=== PATIENT | female | born 1930 | race Caucasian/White ===

== ENCOUNTER 2017-03-13 13:23 | Inpatient (IN) | payer MEDICARE ==
[~2017-03-13] VITALS: Ht 165.1 cm; Wt 70.4 kg
[2017-03-13 14:22] LABS: BASOPHILS 0.2 % (0-2); EOSINOPHILS 0.5 % (0-7); HEMATOCRIT 39.2 % (36.0-48.0); HEMOGLOBIN 14.3 g/dL (12-16); IMMATURE GRANULOCYTES 0.3 % (0-5); LYMPHOCYTES 14.5 % (15-50); MCH 33.1 pg (26.0-34.0); MCHC 36.5 g/dL (31.0-37.0); MCV 90.7 fL (80.0-100.0); MONOCYTES 9.5 % (2-11); PLATELET COUNT 204 10x3/uL (130-400); RBC 4.32 10x6/uL (4.00-5.40); RDW 12.1 % (11.5-14.5); WBC 6.6 10x3/uL (4.8-10.8)
[2017-03-13 14:32] LABS: INR 2.13 (0.85-1.17); PROTIME 23.3 SECONDS (11.6-15.0)
[2017-03-13 14:33] LABS: APTT 36.8 SECONDS (22.8-39.4)
[2017-03-13 14:34] LABS: D-DIMER-QUANTITATIVE 0.58 ug/mLFEU (0.20-0.54)
[2017-03-13 14:48] LABS: ALBUMIN 3.9 g/dL (3.4-5.0); ALKALINE PHOSPHATASE 122 U/L (46-116); ALT (SGPT) 35 U/L (10-68); BILIRUBIN - TOTAL 0.85 mg/dL (0.2-1.3); CALC OSMOLALITY 235 mosm/kg (275-300); CALCIUM 9.2 mg/dL (8.5-10.1); CARBON DIOXIDE 26.2 mmol/L (21.0-32.0); CREATINE KINASE 500 UL (21-215); CREATININE - SERUM 0.8 mg/dL (0.6-1.3); GLUCOSE 123 mg/dL (74-106); POTASSIUM - SERUM 3.6 mmol/L (3.5-5.1); PRO BNP 1114 pg/mL (0-450); PROTEIN - SERUM 7.8 g/dL (6.4-8.2); TROPONIN-I 0.024 ng/mL (0.000-0.060); UREA NITROGEN 13 mg/dL (7-18); eGFR NON AFRICAN AMERICAN 72 mL/min (90-120)
[2017-03-13 14:50] LABS: CHLORIDE - SERUM 80 mmol/L (98-107)
[2017-03-13 14:51] LABS: SODIUM 116 mmol/L (136-145)
--- NOTE | 2017-03-13 19:13 | NUR ---
ARRIVED TO FLOOR VIA WHEELCHAIR, ACCOMPANIED BY HOSPITAL STAFF AND FAMILY. ORIENTED TO UNIT, CALL LIGHT IN REACH. WILL CONTINUE TO MONITOR. SEE NURSE ASSESSMENT. PLACED ON TELEMETRY.
[2017-03-13] MEDS ORDERED: DOXYCYCLINE HY100 M2 PO (19:56)
[2017-03-13] MEDS ORDERED: CARDIZEM 90 MG90 MG PO (19:57)
[2017-03-13] MEDS ORDERED: PROVENTIL HFA6.7 GM INH (19:57)
[2017-03-13] MEDS ORDERED: COUMADIN10 MG PO (19:58)
[2017-03-13] MEDS ORDERED: LEVOTHYROXINE50 MCG PO (19:58)
[2017-03-13] MEDS ORDERED: HCTZ25 MG PO (19:58)
[2017-03-13] MEDS ORDERED: LIPITOR10 MG PO (19:59)
[2017-03-13] MEDS ORDERED: LOSARTAN POTASS25 MG PO (20:00)
--- NOTE | 2017-03-13 20:09 | NUR ---
ADMISSION COMPLETED, MED REC REVIEWED, DR. ZAYAS PAGED FOR CONTINUATION OF HOME MEDS. AWAITING CALL BACK.
[2017-03-13 22:42] VITALS: BP 157/83
--- NOTE | 2017-03-14 01:53 | NUR ---
LYING IN BED WITH EYES CLOSED, CALL LIGHT IN REACH. WILL CONTINUE WITH PLAN OF CARE.
[2017-03-14 05:10] LABS: BASOPHILS 0 % (0-2); EOSINOPHILS 0.7 % (0-7); HEMOGLOBIN 12.5 g/dL (12-16); IMMATURE GRANULOCYTES 0.2 % (0-5); LYMPHOCYTES 12.5 % (15-50); MCH 32.1 pg (26.0-34.0); MCHC 35.7 g/dL (31.0-37.0); MEAN PLATELET VOLUME 8.9 fL (7.4-10.4); MONOCYTES 11.4 % (2-11); NEUTROPHILS 75.2 % (40-80); PLATELET COUNT 191 10x3/uL (130-400); RBC 3.89 10x6/uL (4.00-5.40); RDW 11.9 % (11.5-14.5); WBC 5.6 10x3/uL (4.8-10.8)
[2017-03-14 05:19] VITALS: BP 198/90
[2017-03-14 05:23] LABS: CALCIUM 8.2 mg/dL (8.5-10.1); CARBON DIOXIDE 26.8 mmol/L (21.0-32.0); CREATININE - SERUM 0.7 mg/dL (0.6-1.3); GLUCOSE 94 mg/dL (74-106); MAGNESIUM - SERUM 1.3 mg/dL (1.8-2.4); POTASSIUM - SERUM 3.2 mmol/L (3.5-5.1); UREA NITROGEN 10 mg/dL (7-18); eGFR NON AFRICAN AMERICAN 84 mL/min (90-120)
[2017-03-14 05:24] LABS: CALC OSMOLALITY 235 mosm/kg (275-300); SODIUM 117 mmol/L (136-145)
[2017-03-14 05:25] LABS: CHLORIDE - SERUM 83 mmol/L (98-107)
--- NOTE | 2017-03-14 06:56 | NUR ---
NO CHANGES FROM PREVIOUS ASSESSMENT, CALL LIGHT IN REACH. WILL CONTINUE TO MONITOR.
--- NOTE | 2017-03-14 07:30 | NUR ---
RECEIVED PT IN BED EYES CLOSED RESP UNLABORED NAD NOTED
[2017-03-14 10:27] VITALS: BP 172/76
[2017-03-14 11:56] VITALS: BP 157/78
[2017-03-14 14:01] VITALS: Ht 165.1 cm; Wt 70.4 kg
[2017-03-14 15:53] VITALS: BP 160/73
[2017-03-14 19:00] VITALS: BP 171/95
--- NOTE | 2017-03-14 20:12 | NUR ---
ROUNDING NOTE: PT RESTING WITH EYES CLOSED AT CHANGE OF SHIFT. FRESH ICE WATER BROUGHT TO ROOM. PT IS PACED ON TELE W/ UNDERLYING AFIB. PT HAS HAD 800CC OF 1500CC 24 HOUR FLUID RESTRICTION. WILL CONTINUE TO MONITOR.
[2017-03-15] VITALS: BP 109/59
[2017-03-15 04:00] VITALS: BP 156/82
[2017-03-15 07:38] LABS: INR 2.06 (0.85-1.17); PROTIME 22.6 SECONDS (11.6-15.0)
[2017-03-15 07:41] LABS: BASOPHILS 0.2 % (0-2); EOSINOPHILS 0.8 % (0-7); IMMATURE GRANULOCYTES 0.3 % (0-5); LYMPHOCYTES 20.1 % (15-50); MCH 32.5 pg (26.0-34.0); MCHC 36.3 g/dL (31.0-37.0); MCV 89.6 fL (80.0-100.0); MONOCYTES 11.6 % (2-11); PLATELET COUNT 188 10x3/uL (130-400); WBC 6.6 10x3/uL (4.8-10.8)
[2017-03-15 07:42] LABS: HEMATOCRIT 42.2 % (36.0-48.0); HEMOGLOBIN 15.3 g/dL (12-16); RBC 4.71 10x6/uL (4.00-5.40)
[2017-03-15 07:44] LABS: ANION GAP 11.9 mmol/L (8-16); CREATININE - SERUM 0.9 mg/dL (0.6-1.3)
[2017-03-15 07:49] LABS: POTASSIUM - SERUM 2.9 mmol/L (3.5-5.1)
[2017-03-15 07:56] VITALS: BP 191/101
[2017-03-15 12:23] VITALS: BP 127/77
--- NOTE | 2017-03-15 14:46 | NUR ---
BILAT SCDS APPLIED.
--- NOTE | 2017-03-15 14:47 | NUR ---
TELEMETRY CAF. DAUGHTER AT BS. CALL LIGHT IN REACH. WILL CONT. PLAN OF CARE.
[2017-03-15 15:59] VITALS: BP 108/52
--- NOTE | 2017-03-15 19:00 | NUR ---
RECEIVED REPORT AND ASSUMED PT CARE FROM DAY SHIFT NURSE @ THIS TIME
[2017-03-15 21:02] VITALS: BP 167/89
[2017-03-16 00:19] VITALS: BP 119/63
[2017-03-16 05:16] VITALS: BP 206/91
[2017-03-16 06:22] LABS: INR 2.46 (0.85-1.17)
[2017-03-16 06:24] LABS: BASOPHILS 0.2 % (0-2); HEMATOCRIT 40.2 % (36.0-48.0); HEMOGLOBIN 14.4 g/dL (12-16); IMMATURE GRANULOCYTES 0.2 % (0-5); LYMPHOCYTES 20.2 % (15-50); MCH 32.5 pg (26.0-34.0); MCHC 35.8 g/dL (31.0-37.0); MCV 90.7 fL (80.0-100.0); MEAN PLATELET VOLUME 9.3 fL (7.4-10.4); NEUTROPHILS 64.4 % (40-80); PLATELET COUNT 227 10x3/uL (130-400); RBC 4.43 10x6/uL (4.00-5.40); RDW 12.3 % (11.5-14.5); WBC 4.8 10x3/uL (4.8-10.8)
[2017-03-16 06:27] LABS: ANION GAP 13.3 mmol/L (8-16); CALCIUM 8.7 mg/dL (8.5-10.1); CARBON DIOXIDE 29.2 mmol/L (21.0-32.0); CREATININE - SERUM 0.8 mg/dL (0.6-1.3)
[2017-03-16 06:33] LABS: POTASSIUM - SERUM 3.5 mmol/L (3.5-5.1)
[2017-03-16 08:14] VITALS: BP 177/91
--- NOTE | 2017-03-16 10:38 | NUR ---
TELEMETRY CAF. LEAVING FOR X-RAY BY W/C. WILL MONITOR NEEDS.
[2017-03-16 11:50] VITALS: BP 121/67
[2017-03-16 16:22] VITALS: BP 133/69
--- NOTE | 2017-03-16 19:45 | NUR ---
RESTING IN BED WITH NO DISTRESS. SEE ASSESSMENT. CPOC.
[2017-03-16 20:00] VITALS: BP 176/86
--- NOTE | 2017-03-16 22:33 | NUR ---
PT HAS ASKED FOR NOTHING AND IS LAYING IN BED WITH TELEVISION OFF. BEDTIME MEDS GIVEN. DENIES PAIN OR DISCOMFORT. CPOC.
[2017-03-17] VITALS: BP 134/80
[2017-03-17 04:00] VITALS: BP 160/76
[2017-03-17 05:03] LABS: BASOPHILS 0.4 % (0-2); EOSINOPHILS 1.1 % (0-7); HEMATOCRIT 38.7 % (36.0-48.0); HEMOGLOBIN 13.7 g/dL (12-16); IMMATURE GRANULOCYTES 0.2 % (0-5); LYMPHOCYTES 26.1 % (15-50); MCH 32.3 pg (26.0-34.0); MCHC 35.4 g/dL (31.0-37.0); MCV 91.3 fL (80.0-100.0); MEAN PLATELET VOLUME 8.7 fL (7.4-10.4); MONOCYTES 11.7 % (2-11); NEUTROPHILS 60.5 % (40-80); PLATELET COUNT 200 10x3/uL (130-400); RBC 4.24 10x6/uL (4.00-5.40); RDW 12.6 % (11.5-14.5); WBC 5.3 10x3/uL (4.8-10.8)
[2017-03-17 05:08] LABS: ANION GAP 10.5 mmol/L (8-16); CALCIUM 8.2 mg/dL (8.5-10.1); CARBON DIOXIDE 29.4 mmol/L (21.0-32.0); CREATININE - SERUM 0.8 mg/dL (0.6-1.3); POTASSIUM - SERUM 3.9 mmol/L (3.5-5.1)
[2017-03-17 05:29] LABS: INR 3.11 (0.85-1.17); PROTIME 31.3 SECONDS (11.6-15.0)
--- NOTE | 2017-03-17 07:15 | NUR ---
RESTING QUIETLY NAD NOTED
--- NOTE | 2017-03-17 07:30 | NUR ---
PATIENT IN BED EATING BREAKFAST AT THIS TIME. NO COMPLAINTS OF PAIN AND NO SIGNS OR SYMPTOMS OF DISTRESS OR DISCOMFORT NOTED. CALL LIGHT AND WATER ARE WITHIN REACH.
[2017-03-17 08:00] VITALS: BP 148/75
[2017-03-17 11:25] VITALS: BP 136/60
[2017-03-17 15:39] VITALS: BP 130/61
--- NOTE | 2017-03-17 18:44 | NUR ---
WITHOUT CHANGES OR DISTRESS NOTED AT THIS TIME.
[2017-03-17 19:00] VITALS: BP 150/73
--- NOTE | 2017-03-17 20:00 | NUR ---
PT RESTING IN BED. ALERT/ORIENTED. PIV TO RIGHT A/C SALINE LOCKED. CAF/PACEMAKER PER TELEMETRY. SEE ASSESSMENT. NO NEEDS AT THIS TIME.
--- NOTE | 2017-03-17 22:30 | NUR ---
BEDTIME MEDS GIVEN. NO NEEDS VOICED. CPOC.
[2017-03-18] VITALS: BP 165/82
[2017-03-18 04:00] VITALS: BP 178/87
[2017-03-18 05:43] LABS: BASOPHILS 0.6 % (0-2); EOSINOPHILS 1.7 % (0-7); HEMATOCRIT 38.6 % (36.0-48.0); HEMOGLOBIN 13.4 g/dL (12-16); IMMATURE GRANULOCYTES 0.4 % (0-5); LYMPHOCYTES 28.2 % (15-50); MCH 32.5 pg (26.0-34.0); MCHC 34.7 g/dL (31.0-37.0); MEAN PLATELET VOLUME 8.9 fL (7.4-10.4); MONOCYTES 12.3 % (2-11); NEUTROPHILS 56.8 % (40-80); PLATELET COUNT 211 10x3/uL (130-400); RBC 4.12 10x6/uL (4.00-5.40); WBC 5.2 10x3/uL (4.8-10.8)
[2017-03-18 06:06] LABS: INR 3.6 (0.85-1.17); PROTIME 35.1 SECONDS (11.6-15.0)
[2017-03-18 06:15] LABS: MCV 93.7 fL (80.0-100.0)
[2017-03-18 06:24] LABS: ANION GAP 11.7 mmol/L (8-16); CALCIUM 8.1 mg/dL (8.5-10.1); POTASSIUM - SERUM 3.7 mmol/L (3.5-5.1)
--- NOTE | 2017-03-18 07:15 | NUR ---
RESTING QUIETLY DENIES ANY NEEDS OR DISCOMFORT NAD NOTED
[2017-03-18 07:47] VITALS: BP 156/69
[2017-03-18] MEDS ORDERED: BAYER CHEWABLE81 MG PO (07:51)
[2017-03-18] MEDS ORDERED: BUPROPION HCL200 M1 PO (07:52)
[2017-03-18] MEDS ORDERED: CELEXA40 MG PO (07:53)
--- NOTE | 2017-03-18 08:31 | NUR ---
ASSESSMENT DONE. DENIES NEEDS.
[2017-03-18 11:31] VITALS: BP 147/84
--- NOTE | 2017-03-18 12:15 | EC ---
PATIENT:DELPHINE ZAMARRIPA DATE OF SERVICE: 03/13/17 SEX: F MEDICAL RECORD: [id number] DATE OF : [birth year] LOCATION:D.M2 D.212 AGE OF PATIENT: 86 ADMISSION DATE: 03/13/17 REFERRING PHYSICIAN: INTERPRETING PHYSICIAN: DOTTY MCKEON MD ECHOCARDIOGRAM REPORT ECHO CHARGES 4 ECHO COMPLETE CLINICAL DIAGNOSIS: CHF HX OF HTN/PACER/AFIB ECHOCARDIOGRAPHIC MEASUREMENTS (adult normal given) AC root (d.<3.7cm) 3.5 cm LV Septum d (<1.2 cm> 1.2 cm Valve Excursion 1.5 cm LV Septum (systole) 1.9 cm Left Atria (s.<4.0cm> 4.8 cm LVPW d(<1.2cm) 1.6 cm RV (d.<2.3cm) 4.2 cm LVPW (sytole) 1.8 cm LV diastole(<5.6CM) 5.2 cm MV E-F(>70mm/sec) cm LV systole 2.9 cm LVOT Diameter 1.7 cm MV exc.(>10mm) 1.2 cm Est.ejection fraction (50-75%) % Pericardial Effusion N DOPPLER: LVIT cm/sec A 38.0 cm/sec E 154 cm/sec LA cm/sec RVSP 50 mmHg LVOT 94 cm/sec AOP1/2T m/s Asc. Ao 144 cm/sec RVOT 116 cm/sec RA cm/sec PA 147 cm/sec AV Gradient Peak 8.29 mmHg AV Mean 3.98 mmHg AV Area 1.8 cm MV Gradient Peak 10.10mmHg MV Mean 2.85 mmHg MV Area cm COMMENTS: Milliner Helper: Ren STYLES Outside Repairer Special: 1 Dr. Mckeon TAPE# PACS DATE OF SERVICE: 03/14/2017 Echocardiogram FINDINGS: 1. Left ventricular chamber size is within normal limits. Left ventricular systolic function is normal. Overall ejection fraction estimated at 55%. 2. Left atrium is enlarged at 4.8 cm. Right atrium and right ventricular chamber sizes are as well moderately dilated. 3. Valvular structures have normal structure and motion. ECHOCARDIOGRAM REPORT [id number] DELPHINE ZAMARRIPA 4. Doppler interrogation reveals [id number] mitral regurgitation, severe tricuspid regurgitation, no other valvular insufficiency or stenosis. Pulmonary systolic pressure is elevated estimated at 50 mmHg. 5. No evidence of pericardial effusion or left ventricular thrombus. TRANSINT:[id number] Voice Confirmation ID: [id number] DOCUMENT ID: [id number] DOTTY MCKEON MD at 1215 CC: [id number] DICTATION DATE: 03/14/17 1423 FUR GLOSSER: 03/14/17 1507 ADM IN [address] [id number] [place] [address]
--- NOTE | 2017-03-18 12:15 | CN ---
PATIENT NAME:DELPHINE ONEILL MEDICAL RECORD: [id number] : [birth year] LOCATION:D. D.2122 ADMIT DATE: 03/13/17 ACCOUNT: [id number] CONSULTING PHYSICIAN: DOTTY BASS MD REFERRING PHYSICIAN: ABIMBOLA OAKES MD DATE OF CONSULTATION: 03/14/2017 DIAGNOSES: 1. Shortness of breath, dyspnea on exertion. 2. Sick sinus syndrome, status post pacemaker. 3. Chronic atrial fibrillation. 4. Hypertension. HISTORY OF PRESENT ILLNESS: Ms. Oneill presents to the Emergency Room just not feeling good, chest congestion, coughing up purulent sputum. Her white count is normal. She is afebrile. Her chest x-ray is not compatible with CHF. She has no history of congestive heart failure. Only cardiac history is that of chronic atrial fibrillation and pacemaker. PHYSICAL EXAMINATION: GENERAL APPEARANCE: Well-nourished, well-developed, appears stated age. Level of distress, comfortable. PSYCHIATRIC: Mental status, alert, normal affect. Orientation, oriented to time, place and person. EYES: Lids and conjunctiva, noninjected. No discharge, no pallor. ENT: Lips, teeth, gums, normal dentition. Oropharynx, no cyanosis, no pallor. NECK: Carotid arteries, bilateral normal upstroke, no bruits, no thrills. JUGULAR VEINS: No jugular venous pressure or distention. CERVICAL LYMPH NODES: Nontender, nonenlarged. THYROID: Not enlarged. Nontender. No nodules. LUNGS: Respiratory effort, unlabored. CHEST: Normal curvature. No thoracic deformity. No chest wall tenderness. Percussion, resonant. Auscultation, clear. No wheezes, no rales, no rhonchi. CARDIOVASCULAR: Precordial exam, nondisplaced. No heaves or pericardial thrills. Rate and rhythm, regular. Heart sounds, normal S1, normal S2. No S3, no gallop, no rub. Systolic murmur, not heard. Diastolic murmur, not heard. EXTREMITIES: No cyanosis, no edema. Peripheral pulses, full and equal in all extremities, except as noted. No bruits appreciated. ABDOMEN: Soft, nondistended. Normal aorta. No bruit. Nontender. No masses. Liver, nontender, no hepatomegaly. Spleen, nontender, no splenomegaly. MUSCULOSKELETAL: No joint tenderness. No joint swelling. No erythema. NEUROLOGICAL: Normal gait, normal strength, normal tone. SKIN: Warm and dry. OVERALL IMPRESSION: Most likely this is not congestive heart failure. We will get an echocardiogram. She has not had an abnormal ejection fraction in the past. Continue her current cardiac medications. Other than the echocardiogram, no other cardiac treatment or workup will be necessary at this time. TRANSINT:[id number] Voice Confirmation ID: [id number] DOCUMENT ID: [id number] CONSULT REPORT [id number] DELPHINE ONEILL JEFFREY MD at 1215 CC: [id number] DICTATION DATE: 03/14/17 0844 DISTRIBUTION DESIGNER: 03/14/17 1118 ADM IN [id number] [place] [address]
[2017-03-18] MEDS ORDERED: LASIX20 MG PO (14:05)
[2017-03-18] MEDS ORDERED: KLOR-CON M1515 MEQ PO (14:06)
--- NOTE | 2017-03-18 15:38 | NUR ---
Patient Name: DELPHINE ZAMARRIPA Admission Status: ER Accout number: [id number] Admission Date: 03-13-2017 : 1930 Admission Diagnosis:SHORTNESS OF BREATH Attending: ABIMBOLA OAKES Current LOS: 5 Anticipated DC Date: 03-18-2017 Planned Disposition: Home Primary Insurance: MEDICARE A & B Discharge Planning Comments: * Is the patient Alert and Oriented? Yes 0 * How many steps to enter\exit or inside your home? RAMP 0 * PCP REAL ESTATE ANALYST [facility]ENICE 0 * Pharmacy [facility] OR [address] 0 * Preadmission Environment Home Alone 0 * ADLs Independent 0 * Equipment Cane 0 * Other Equipment NO MEDICAL EQUIPMENT PROVIDER PREFERENCE 0 * List name and contact numbers for known caregivers / representatives who currently or will assist patient after discharge: YORDAN MAHMOOD, DAUGHTER, 0 * Community resources currently utilized None 0 * Please name any agencies selected above. NONE 0 * Additional services required to return to the preadmission environment? No 0 * Can the patient safely return to the preadmission environment? Yes 0 * Has this patient been hospitalized within the prior 30 days at any hospital? No 0 CM MET WITH PT IN ROOM TO DISCUSS DISCHARGE PLANNING AND NEEDS. PT REPORTS LIVING AT HOME INDEPENDENTLY AND ALONE. PT HAS A CANE THAT SHE USES OUTSIDE ONLY AND NO MEDICAL EQUIPMENT PROVIDER PREFERENCE. PT HAS NO OUTSIDE SERVICES ASSISTING IN THE HOME. PT HAS A CHAIR LIFT FROM FIRST FLOOR TO SECOND FLOOR OF HER HOME AND A RAMP ENTRANCE. CM DISCUSSED AVAILABILITY OF HOME HEALTH, REHAB SERVICES AND MEDICAL EQUIPMENT. PT DENIES DISCHARGE NEEDS, STATES THAT HER DAUGHTER LIVES CLOSE BY AND CAN ASSIST IF NEEDED. PT REPORTS HER DAUGHTER WILL PICK HER UP FOR DISCHARGE HOME AND WISHED THAT SOMEONE WOULD CALL HER. CM CALLED PT'S DAUGHTER, YORDAN MAHMOOD AT [phone], NOTIFIED OF DISCHARGE TODAY, YORDAN IS GETTING GAS AND WILL BE TO HOSPITAL SHORTLY TO ASSEMBLER MUSICAL EQUIPMENT PT. PT ASKED THAT DISCHARGE INSTRUCTIONS BE GIVEN AFTER HER DAUGHTER ARRIVES PT REPORTS MEMORY PROBLEMS. IMPORTANT MESSAGE FROM MEDICARE PROVIDED AND EXPLAINED. HR ASSOCIATE NURSE NOTIFIED. Executive Producer: Rneny Owen
[2017-03-18 15:40] VITALS: BP 142/77
--- NOTE | 2017-03-18 16:04 | NUR ---
DC GIVEN TO PT AND DAUGHTER
--- NOTE | 2017-03-18 16:23 | NUR ---
DC HOME PER PERSONAL CAR
== END 2017-03-18 16:23 | disposition home or self-care (01) | DRG 292 ==
LOC: D.ER 13:23 → D.M2 16:30 → D.SDCHOLD 17:57 → D.M2 18:14
PROVIDERS: Family Medicine; ADMIT Family Medicine
DX: I11.0 Hypertensive heart disease with heart failure (principal); E87.1 Hypo-osmolality and hyponatremia; I50.21 Acute systolic (congestive) heart failure; Z95.0 Presence of cardiac pacemaker; I48.2 Chronic atrial fibrillation; Z79.01 Long term (current) use of anticoagulants